=== PATIENT | female | born 1955 | race Caucasian/White ===

== ENCOUNTER 2019-07-17 14:42 | Outpatient (CLI) | payer BC ==
--- NOTE | 2019-07-17 15:14 | RAD ---
EXAM: Single view of the abdomen HISTORY: Kidney stones COMPARISON: None FINDINGS: Single view of the abdomen shows a nonspecific, nonobstructive bowel gas pattern. There are bulky calcifications in both kidneys, right greater than left. There are bilateral double-J ureteral stents which appear in good position. No calcifications are seen along either stent. The mayra eliu are unremarkable. IMPRESSION: Bilateral nephrolithiasis
== END 2019-07-17 14:43 | disposition home or self-care (01) ==
LOC: RAD 14:42
PROVIDERS: ATTEND Urology
DX: N20.0 Calculus of kidney (principal)
CPT/HCPCS: 74018

== ENCOUNTER 2019-08-28 15:12 | Outpatient (CLI) | payer BC ==
--- NOTE | 2019-08-28 15:48 | RAD ---
SINGLE VIEW ABDOMEN: 08/28/19 HISTORY: Kidney stones. COMPARISON: 07/17/19. FINDINGS: Bilateral ureteral stents are again noted in place. Again noted are calcifications seen overlying the lower pole left renal shadow as well as overlying the right kidney similar to the prior study. Ther e are metallic clips overlying the right upper quadrant. Bowel gas pattern is nonspecific. No other i nterval change. IMPRESSION: Bilateral nephrolithiasis with bilateral ureteral stents unchanged in position. POS: [facility]
== END 2019-08-28 15:13 | disposition home or self-care (01) ==
LOC: RAD 15:12
PROVIDERS: ATTEND Urology
DX: N20.0 Calculus of kidney (principal)
CPT/HCPCS: 74018

== ENCOUNTER 2019-12-03 11:42 | Outpatient (CLI) | payer BC ==
--- NOTE | 2019-12-03 11:58 | RAD ---
EXAM: XR Abdomen 1 View/KUB PROVIDED CLINICAL HISTORY: Kidney stones COMPARISON: 08/28/2019 FINDINGS: There has been interval removal of the bilateral ureteral stents when compared to prior study. Multip le surgical clips again overlie the right upper quadrant. The most lateral aspects of the abdomen are excluded from view on this image. Upper abdomen is also not imaged. Bowel gas pattern is nonspeci fic. Previously seen calcifications overlying the renal shadows bilaterally are not visualized on this examination which may be related to interval treatment. No definite suspicious calcifications ar e seen. No other interval change. IMPRESSION: 1. Interval removal of bilateral ureteral stents. In addition, the previously seen calcifications ove rlie the renal shadows bilaterally are also no longer visualized and may be related to interval treatment.
== END 2019-12-03 11:43 | disposition home or self-care (01) ==
LOC: BICRAD 11:42
PROVIDERS: ATTEND Urology
DX: N20.0 Calculus of kidney (principal)
CPT/HCPCS: 74018; 87077; 87086; 87186

== ENCOUNTER 2020-08-06 11:39 | Outpatient (CLI) | payer BC ==
--- NOTE | 2020-08-06 12:45 | CT ---
CT OF THE ABDOMEN AND PELVIS WITHOUT IV CONTRAST INDICATION: History of renal stones with back pain COMPARISON: CTA of the abdomen dated December 16, 2019 FINDINGS: The lack of IV contrast limits evaluation of the solid organs of the abdomen and pelvis. ABDOMEN: Lung bases: Clear Liver: The liver reveals no focal hepatic lesion. Gallbladder: Surgically absent Pancreas: Normal. Adrenal glands: Normal. Spleen: Normal. Kidneys and ureters: There is a stable 6 mm nonobstructing calculus within the posterior and inferior aspect of the left kidney. There 1 to 2 mm nonobstructing calculi within the right mid kidney on image 39 of series 2. Additional 1 to 2 mm calculus seen within the lower pole right kidney on image 44 series 2. No definite ureteral calcification or hydronephrosis is evident. Vasculature: There are mild vascular calcifications seen involving the visualized vasculature. Lymph nodes:No lymphadenopathy. Free fluid in abdomen:No free fluid is evident. PELVIS: Small and large bowel: Normal Appendix:Normal Bladder: Normal. Rectal and perirectal soft tissues:Normal. Reproductive structures: Normal. Free fluid in pelvis: No free fluid is evident. Lymphadenopathy pelvis: No lymphadenopathy is evident. Osseous structures: No acute osseous abnormality. No destructive osteolytic or osteoblastic lesion i s identified. There is scattered degenerative and osteoarthritic changes. Stable chronic wedge deformity of T11. Soft tissues:Normal. IMPRESSION: 1. Bilateral nephrolithiasis. No ureteral calculus or hydronephrosis demonstrated. The largest stone is seen within lower pole the left kidney measuring 6 mm. 2. Stable chronic wedge deformity of T11. No acute fracture demonstrated. There is stable moderate to severe multilevel thoracolumbar spondylosis.
== END 2020-08-06 11:40 | disposition home or self-care (01) ==
LOC: SCSCT 11:39
PROVIDERS: ATTEND Urology
DX: N30.20 Other chronic cystitis without hematuria (principal); N20.0 Calculus of kidney; M43.8X4 Other specified deforming dorsopathies, thoracic region; M47.815 Spondylosis without myelopathy or radiculopathy, thoracolumbar region
CPT/HCPCS: 74176